=== PATIENT | female | born 1980 | race Caucasian/White ===

== ENCOUNTER 2019-04-16 08:37 | Emergency (ER) | payer OTHER, MEDICAID ==
[~2019-04-16] VITALS: Ht 180.3 cm; Wt 93.0 kg
[2019-04-16] MEDS ORDERED: PREDNISONE 20 M20 M1 PO (09:28)
[2019-04-16] MEDS ORDERED: LEVAQUIN 500 M500 MG PO (09:28)
[2019-04-16 09:35] VITALS: BP 123/77
== END 2019-04-16 09:40 | disposition home or self-care (01) ==
LOC: M.ERS 08:37
DX: R05 Cough (principal)

== ENCOUNTER 2019-10-03 19:44 | Inpatient (IN) | payer OTHER ==
[~2019-10-03] VITALS: Ht 180.3 cm; Wt 93.9 kg
--- NOTE | ~2019-10-03 | CON ---
[address] [address] CONSULTATION Name: ALEJANDRINABILLY M Room: [address] IN M.R.#: [id number] Admission: 10/03/19 Attend Phys: Dilma Adames Discharge: Date of : 80 Report #: [id number] THIS REPORT FOR: //name// cc: JACQUELINE García family physician/PCP JACQUELINE García family physician/PCP ~ THIS REPORT FOR: //name// CC: Dr. Flanagan [facility] physician/PCP Ian Reynoso DICTATED BY: Jazmyne Resendez [facility] DATE OF SERVICE: 10/04/2019 Please note at the time of this dictation, the patient was seen and physically examined by myself. REASON FOR CONSULTATION: Tylenol overdose. HISTORY OF PRESENT ILLNESS: This is a 38-year-old female who presented to the Emergency Room with noting that she had taken ten 1 mg lorazepam and three 1 mg of Ambien that she mumbling to herself that she wanted to be closer to her daughter who committed suicide on 08/04/2019. The patient denied any alcohol use that day, but has had a previous history of alcohol abuse and had been attending AA. She denied any overdose on Tylenol; however, when they did an acetaminophen level on admission, she was 132 and she is continuing to go down. The patient is very vague in her responses and most of her H and P is obtained from her chart. The patient is very slurring of her words and hard to follow and does fall asleep throughout. The patient does mention that her PCP is Dr. Flanagan. ALLERGIES: No known drug allergies. MEDICATIONS: It appears medications from home have been clonazepam and Ambien as well as some lorazepam. PAST SURGICAL HISTORY: Negative. FAMILY HISTORY: Negative. SOCIAL HISTORY: No recent but previous history of alcohol abuse. The patient has been going to . REVIEW OF SYSTEMS: A 12-point review of systems is essentially negative except what [place] [address] CONSULTATION Name: TINOCOBILLY M Room: [address] IN [facility].#: [id number] Admission: 10/03/19 Attend Phys: Dilma Adames Discharge: Date of : 80 Report #: [id number] PHYSICAL EXAMINATION: VITAL SIGNS: Temperature 36.6, pulse 74, respirations 22, blood pressure 138/78. HEART: Regular rate and rhythm. LUNGS: Diminished, but clear. ABDOMEN: Soft, positive bowel sounds in all 4 quadrants with no masses or tenderness noted. LABORATORY DATA: Hemoglobin is 14.7, white count is 10.8, platelets 242,000. PT 10, INR 1.0. Total bilirubin 0.5, alkaline phosphatase is 75, ALT 14, AST is 10. She was positive for benzos and acetaminophen and marijuana. IMPRESSION: 1. Intentional Tylenol overdose along with Ambien and lorazepam. 2. Suicidal ideation. PLAN: 1. Continue her acetylcysteine. 2. Monitor her LFTs. 3. Further recommendations to be made once Dr. Watkins sees the patient later today. Thank you for allowing us to participate in this patient's care. Please do not hesitate to call with any questions in regard to this consult. By: [phone] Watkins DO /nt
[~2019-10-03 19:44] MED LIST: LEVAQUIN 500 M500 MG PO; PREDNISONE 20 M20 M1 PO
[2019-10-03] MEDS ORDERED: KLONOPIN1 MG (19:51)
[2019-10-03] MEDS ORDERED: AMBIEN (19:52)
[2019-10-03 20:53] LABS: URINE BILIRUBIN NEGATIVE (Negative); URINE BLOOD NEGATIVE (Negative); URINE CLARITY CLEAR; URINE COLOR YELLOW; URINE GLUCOSE-RANDOM NEGATIVE (Negative); URINE KETONES NEGATIVE (Negative); URINE LEUKOCYTES-REFLEX NEGATIVE (Negative); URINE NITRITE-REFLEX NEGATIVE (Negative); URINE PROTEIN TRACE (Negative); URINE SPECIFIC GRAVITY >= 1.030 (1.005-1.030); URINE UROBILINOGEN 0.2 E.U./dl (0.2-1.0)
[2019-10-03 21:05] LABS: AMP/METHAMP Negative (Negative); BARBITURATES Negative (Negative); BENZODIAZEPINES POSITIVE (Negative); COCAINE Negative (Negative); METHADONE Negative (Negative); OPIATES Negative (Negative); PCP Negative (Negative); THC POSITIVE (Negative)
[2019-10-03 21:06] LABS: ABSOLUTE LYMPHOCYTES 1.1 thou/uL (0.8-5.3)
[2019-10-03 21:08] LABS: BASOPHILS 0.3 %; EOSINOPHILS 0.4 %; NUCLEATED RBCS 0 /100WBC; WBC 10.8 thou/uL (4.0-11.0)
[2019-10-03 21:13] LABS: CALCIUM 8.5 mg/dL (8.5-10.1); CREATININE 0.8 mg/dL (0.6-1.3); POTASSIUM 4.5 mmol/L (3.5-5.1)
[2019-10-03 21:18] LABS: ALBUMIN 4.1 g/dL (3.4-5.0); TOTAL BILIRUBIN 0.5 mg/dL (<0.1-1.0); TOTAL PROTEIN 7.6 g/dL (6.4-8.2)
[2019-10-03 21:22] LABS: ABSOLUTE MONOCYTES 0.5 thou/uL (0.0-1.2); ABSOLUTE NEUTROPHILS 9.1 thou/uL (1.6-8.1); HEMATOCRIT 42.4 % (37.0-47.0); HEMOGLOBIN 14.7 gm/dL (12.0-15.0); LYMPHOCYTES 10.4 %; MCH 32.2 pg (26.0-34.0); MCHC 34.7 g/dL (28.0-37.0); MCV 92.7 fL (80.0-100.0); MONOCYTES 4.3 %; PLATELET COUNT* 242 thou/uL (150-400); POLYS 84.6 %; RBC 4.57 mil/uL (4.20-5.00); RDW-CV 13.7 % (10.5-14.5)
[2019-10-03 21:24] LABS: ACETAMINOPHEN 109 ug/mL (10-30); ALCOHOL < 10 mg/dL (<10); SALICYLATE 5.8 mg/dL (2.8-20.0)
[2019-10-03 22:14] LABS: APTT 24.5 Seconds (25.0-31.3)
[2019-10-03 23:26] VITALS: BP 141/58
[2019-10-03 23:33] VITALS: BP 147/97
[2019-10-04] VITALS (10 sets, daily range): BP systolic 104–155; BP diastolic 58–99
--- NOTE | 2019-10-04 07:35 | NUR ---
RECEIVED REPORT AND ASSUMED CARE AT 2320. PT TRANSPORTED FROM ED TO ICU BED 02. VSS. ICU MONITORING IN PLACEE. ASSESSMENT AND ADMISSION COMPLETED CHARTED. PT IS ABLE TO FOLLOW SOME VERBAL COOMANDS, RESPONDS TO TOUCH AND NAME. NOT RESPONDING VERBALLY, UNABLE TO TRACE WITH EYES. PT HAS 1:1 FOR SAFETY. ON ACETAMINOPHEN OVERDOSE POTOCOL. PT VOMITING UPON ARRIVAL. PRN MEDICATION PER ORDERS. LATER WHEN ABLE TO RESPOND. PT REPORTED THIS WAS JUST A "ONE TIME ATTEMPT". PT DOES NOT REMEMBER TAKING ANY ACETAMINOPHEN. PICS TAKEN OF NOTES WRITTE ON PT ARM SAYS "2019SEP 02 IM DONE" AND SIGNED HER NAME AND UNDER THAT "IM A DNR" BED LOCKED IN LOWEST POSITION, CALL LIGHT WITHIN REACH.BED ALARM ON.
--- NOTE | 2019-10-04 13:01 | NUR ---
PT TRANFERED TO ROOM 226. REPORT GIVEN TO CURTIS STEPHENS. PT BECAME UPSET AND ARGUMENTIVE R/T ROOM CHANGE. BELIEVED "DR WEEKS" WAS SENDING HER TO THE "PSYCH FLOOR". EXPLAINED TO PT THAT SHE WAS LEAVING ICU TO GO TO A DIFFERENT LEVEL OF CARE AND THAT IT WAS NOT A PSYCH FLOOR. NICOLAS VELÁZQUEZ, AND STEFFEN FROM [employer]URITY ESCORTED PT TO ROOM 226. NO PERSONAL BELONGINGS FOUND ON UNIT. PT HAS BELONGINGS IN SECURITY.
--- NOTE | 2019-10-04 15:05 | NUR ---
RECEIEVIED REPORT FROM ILANA RN IN ICU OF EXPECTED TRANSFER- DX: SI, TYLENOL OVERDOSE- PT ARRIED TO ROOM 226 VIA W/C PER TECH AT 1300- OYSTER SHIPPER PLACED ORDERED, TRACING SR WITH 1ST DEGREE-ROOM PREPED INDICATED AND SITTER AT SIDE-PT NOTED TO BE A&O X3-4, WITH SLURRED SPEACH- PRIOR ASSESSMENT REVIEWED AND THIS NURSE AGREES- IV NOTED TO LEFT AC AND LEFT WRIST INTACT, IV ACETYLCYSTEINE INFUSSING PRESICBED- PRESCIBED ZOYSN GIVEN PRESCIBED WELL- PT NOTED TO BE AGGRUMENTATIVE AT TIMES AND QUESTIONING IF ANYONE HAS EVER ESCAPED FROM HERE BEFORE- EXPRESSES CONCERNS FOR LOSING JOB IF SHE DOSEN'T GET OUT OF HERE- PT THEN LATER NOTED TO PULL OUT LEFT AC IV, STATING AGAIN THAT SHE WANTED TO LEAVE- CALL LIGHT AND PERSONAL BELONGINGS WITH IN REACH- HOURLY ROUNDS IN PLACE R/T SAFETY/NEEDS- ALL NEEDS MET AT THIS TIME-WCTM
--- NOTE | 2019-10-04 16:47 | EKG ---
[place] [address] ELECTROCARDIOGRAM REPORT Name: BILLY TINOCO Room: [address] IN ..#: [id number] Admission: 10/03/19 Attend Phys: Ian Reynoso Discharge: Date of : 80 Date of Service: 10/03/192006 Report #: [id number] THIS REPORT FOR: //name// [facility] ED Test Date: 2019-10-03 Test Time: 20:07:43 Pat Name: BILLY TINOCO Department: Room: [facility] Gender: F Radiological Technician: MR : [id number] Requested By: Eulogio Griffiths Order Number: [id number] MD: Jose Romo Measurements Intervals [place] Rate: 61 P: 62 PA: 194 QRS: 44 QRSD: 109 T: 37 QT: 438 QTc: 442 Interpretive Statements Sinus arrhythmia RSR' in V1 or V2, right VCD No previous ECG available for comparison Electronically Signed On 10-04-2019 16:46:30 INFORMATION SYSTEMS TECHNICIAN by Jose Romo [email or web address] <ELECTRONICALLY SIGNED> By: Jose Romo MD, [facility] 10/04/19 1646 06 06 Jose Romo MD, [facility] /EPI
[2019-10-04 19:31] LABS: SGOT 6 U/L (15-37); SGPT 13 U/L (30-65)
[2019-10-04 23:12] LABS: HEMATOCRIT 39.7 % (37.0-47.0); HEMOGLOBIN 13.6 gm/dL (12.0-15.0)
[2019-10-04 23:22] LABS: INR 1.1; PROTIME 11.4 Seconds (9.20-11.50)
[2019-10-04 23:25] LABS: ALBUMIN 3.5 g/dL (3.4-5.0); CALCIUM 8.4 mg/dL (8.5-10.1); CREATININE 0.7 mg/dL (0.6-1.3); DIRECT BILIRUBIN 0.1 mg/dL (<0.1-0.3); POTASSIUM 3.4 mmol/L (3.5-5.1); TOTAL BILIRUBIN 0.7 mg/dL (<0.1-1.0); TOTAL PROTEIN 6.9 g/dL (6.4-8.2)
[2019-10-05 00:38] VITALS: BP 112/53
[2019-10-05 04:00] VITALS: BP 121/78
[2019-10-05 05:25] LABS: INR 1.1; PROTIME 11.4 Seconds (9.20-11.50)
--- NOTE | 2019-10-05 05:29 | NUR ---
PATIENT HAS SLEPT OFF AND ON DURING THE NIGHT. VSS ON RA. SITTER IN ROOM WITH PATIENT. PATIENT REMAINS ON SUICIDE WATCH. NO C/O PAIN. MEDICATIONS GIVEN ORDERED AND CHARTED. POISON CONTROL CALLED TO CHECK ON PATIENTS LABS AND INQUIRE ABOUT PATIENT STATUS. PATIENT IS SINUS RHYTHM ON TELE MONITOR. IV IN LEFT FOREARM-SL. IV IN LEFT WRIST-SL. IV ABT GIVEN WITHOUT ANY ADVERSE SIDE EFFECTS NOTED. HOURLY ROUNDS MADE. WILL CONTINUE WITH PLAN OF CARE AND NURSING TO MONITOR.
[2019-10-05 05:50] LABS: ALBUMIN 3.4 g/dL (3.4-5.0); CREATININE 0.7 mg/dL (0.6-1.3); POTASSIUM 3.2 mmol/L (3.5-5.1); TOTAL BILIRUBIN 0.6 mg/dL (<0.1-1.0); TOTAL PROTEIN 6.8 g/dL (6.4-8.2)
[2019-10-05 06:48] LABS: ABSOLUTE EOSINOPHILS 0.2 thou/uL (0.0-0.7); ABSOLUTE LYMPHOCYTES 1.8 thou/uL (0.8-5.3); ABSOLUTE MONOCYTES 0.4 thou/uL (0.0-1.2); ABSOLUTE NEUTROPHILS 6.9 thou/uL (1.6-8.1); BASOPHILS 0.5 %; EOSINOPHILS 1.9 %; HEMATOCRIT 39.6 % (37.0-47.0); HEMOGLOBIN 13.6 gm/dL (12.0-15.0); LYMPHOCYTES 19.3 %; MCH 31.9 pg (26.0-34.0); MCHC 34.3 g/dL (28.0-37.0); MONOCYTES 4.6 %; NUCLEATED RBCS 0 /100WBC; PLATELET COUNT* 200 thou/uL (150-400); POLYS 73.7 %; RBC 4.26 mil/uL (4.20-5.00); RDW-CV 13.5 % (10.5-14.5); WBC 9.3 thou/uL (4.0-11.0)
[2019-10-05 07:52] VITALS: BP 113/60
--- NOTE | 2019-10-05 07:53 | NUR ---
LATE ENTRY FOR 10/04 1015: ICU ROUNDS: PT.TOOK UNKNOWN AMOUNTS OF TYLENOL, AMBIEN AND KLONOPIN. TYLENOL LEVEL ELEVATED. UDS + FOR BENZOS AND THC. PT.WITH SLURRED SPEECH. NURSING ADVISED CM AGAINST SEE PT. SHE WAS BECOMING AGITATED, AT THIS TIME.
--- NOTE | 2019-10-05 08:44 | NUR ---
ASSUMED CARE OF PT THIS AM AROUND 0715- PUNCHBOARD FILLING MACHINE OPERATOR IN PLACE ORDERED, TRACING SR- UPON ASSESSMENT PT NOTED TO BE RESTING IN BED, EYES CLOSED- SITTER AT SIDE INDICATED- PT A&O X4, DROWSY- CONT OF B/B- SBA WITH TRANSFERS- COURSE LUNG SOUNDS WITH WET PRODUCTIVE COUGH- VSS, O2 SAT 93% ON RA- ABD SOFT/ROUND/NON-TENDER, BS X4 QUADS-LAST BM REPORTED 10/04/19- IV NOTED TO LEFT FA INTACT WITH IV ABT INFUSSING THIS AM PRESCIBED, 2ND IV NOTED TO LEFT WRIST INTACT AND SL- PT DENIES ANY C/O PAIN/DISCOMFORT THIS AM- CALL LIGHT AND PERSONAL BELONGINGS WITH IN REACH- ALL NEEDS MET AT THIS TIME-WCTM
[2019-10-05] MEDS ORDERED: AUGMENTIN 875-1 EACH PO (10:53)
[2019-10-05 10:58] VITALS: BP 112/68
[2019-10-05 16:07] LABS: HEPATITIS B SURFACE AG Negative (Negative)
[2019-10-05 16:17] VITALS: BP 105/55
--- NOTE | 2019-10-05 16:45 | NUR ---
MET WITH PT TODAY AFTER PSYCH CONSULT. PER PT, NEEDED TO MAKE APPTS WITH HER DRS AND COULD LEAVE TODAY OR TOMORROW. READ PSYCH CONSULT WITH NURSING AND THEY CALLED TO DISCUSS WITH TELE PSYCH . KALIE ALSO SPOKE WITH DR, SHE INTERPRETTED CONSULT AND WAS MADE AWARE THAT CM ABLE TO ASSIST PT WITH SECURING APPTS. NOT ABLE TO COMPLETE RECOMMENED MED RECONSILIATION PT'S PCP HAS BEEN PRESCRIBING MEDS PER PT. THIS TELEPSYCH DR TO DO A 2ND EVAL PER 1ST RECOMMENDATION AND THE RESULT OF THAT IS FOR INPT PSYCH. UPDATED DR ANDERSON ON BOTH RESULTS. HE IS AGREEABLE TO INPT PSYCH TRANSFER ONLY. CALLED AND FAXED REFERRALS WITH AFFADVAITS TO [facility], [facility], [facility] AND [facility]. THE FOLLOWING HAD NO BEDS AND WOULDN'T TAKE REFERRAL: [facility] ALL REFERRALS TO CALL THE NURSING UNIT BACK WITH ACCEPTANCE/DENIAL
[2019-10-05 20:00] VITALS: BP 115/61
[2019-10-06 00:40] VITALS: BP 116/69
--- NOTE | 2019-10-06 01:17 | NUR ---
STILL WAITING ON INPT PSYCH PLACEMENT. [facility] CALLED NURSING AT APPROX 1999 TO ENSURE PATIENT STILL NEEDED A BED. REASSURED THEM THAT PATIENT WAS STILL HERE AND NEEDING PLACEMENT. THEY STATED THEY WERE REACHING OUT TO PSYCHIATRIST TO INQUIRE ABOUT ACCEPTANCE. WAS TOLD AT THIS TIME THAT THEY WOULD RETURN THE PHONE CALL IF THERE WAS AN ACCEPTING PHYSICIAN TONIGHT. NO CALL BACK AT THIS TIME.
--- NOTE | 2019-10-06 05:29 | NUR ---
FOLLOWED UP WITH [facility] AT APPROX 0200. THEY ARE REQUESTING AN UPDATED AFFADAVIT FROM THE PHYSICIAN FROM 10/05/19 OR NEWER. UNABLE TO OBTAIN AT THIS TIME DUE TO PHYSICIAN NOT BEING IN HOUSE TO WRITE ONE. MANUFACTURING MACHINE OPERATOR UP TO DATE AND CASE MANAGEMENT TO BE UPDATED WELL. CALL LIGHT WITHIN REACH
[2019-10-06 07:54] VITALS: BP 117/63
--- NOTE | 2019-10-06 08:51 | NUR ---
PER ELEMENTARY [employer], [facility] CALLED BACK AND NEEDS UPDATED AFFADAVITS FROM K[facility]IE AND . CALL TO ANTONIETTA [facility]LL[facility]/JOSE DAVID, HE CONFIRMED THIS. WILL DISCUSS WITH DR SOLARES TO [facility], THEY DECLINED D/T CAPABILITY CALL TO [facility], THEY MAY HAVE BEDS TODAY AND ASKED THAT REFERRAL BE RE-FAXED, DONE
--- NOTE | 2019-10-06 09:00 | NUR ---
ASSUMED CARE OF PT THIS AM AROUND 0715- M/S STATUS IN PLACE AND MAINTAINED INDICCATED- PT A&O X4- CONT OF B/B- UP SBA FOR SAFETY- SITTER AT SIDE INDCIATED R/T SI- LCTA, RESP EVEN ADND [id number] PRODUCTIVE COUGH- VSS, O2 SAT 98% ON RA-ABD SOFT/ROUND/NON-TENDER, BS X4 QUADS-LAST BM REPORTED 10/05/19- IV NOTED TO LEFT FA AND LEFT AC INTACT AND SL- AWAITING INPT PYCH PLACEMENT AT THIS TIME- DENIES ANY C/O PAIN/DISCOMFORT AT THIS TIME- MAKES NEEDS KNOWN- ALL NEEDS MET AT THIS TIME-WCTM
[2019-10-06 09:36] VITALS: BP 117/63
== END 2019-10-06 14:48 | DRG 917 ==
LOC: M.ERS 19:44 → M.ICU 22:01 → M.TBA-ER 22:01 → M.ICU 23:08 → M.2W 10-04 13:02
PROVIDERS: Emergency Medicine Emergency Medical Services; Internal Medicine; Internal Medicine Gastroenterology; ADMIT Internal Medicine
DX: T39.1X2A Poisoning by 4-Aminophenol derivatives, intentional self-harm, initial encounter (principal); G92 Toxic encephalopathy; J69.0 Pneumonitis due to inhalation of food and vomit; R45.851 Suicidal ideations; T42.4X2A Poisoning by benzodiazepines, intentional self-harm, initial encounter; T42.6X2A Poisoning by other antiepileptic and sedative-hypnotic drugs, intentional self-harm, initial encounter; F17.210 Nicotine dependence, cigarettes, uncomplicated; F12.90 Cannabis use, unspecified, uncomplicated; F32.9 Major depressive disorder, single episode, unspecified; Z79.899 Other long term (current) drug therapy; Y92.89 Other specified places as the place of occurrence of the external cause; Z28.21 Immunization not carried out because of patient refusal